=== PATIENT | female | born 1995 | race Two or more races ===

== ENCOUNTER 2018-09-23 15:44 | Emergency (ER) | payer MEDICAID, OTHER ==
[~2018-09-23] VITALS: Ht 149.9 cm; Wt 81.6 kg
[2018-09-23 16:28] VITALS: BP 105/68
[2018-09-23] MEDS ORDERED: IPRATROPIUM BROM 0.5 MG/2.5ML INH SOL ONE (16:58)
[2018-09-23] MEDS ORDERED: ALBUTEROL SULF 2.5 MG/0.5ML(0.5%) NEB SOLN ONE (16:58)
[2018-09-23] MEDS ORDERED: ALBUTEROL SULF 2.5 MG/0.5ML(0.5%) NEB SOLN NEB ONE (17:00)
[2018-09-23] MEDS ORDERED: IPRATROPIUM BROM 0.5 MG/2.5ML INH SOL NEB ONE (17:00)
== END 2018-09-23 17:29 | disposition home or self-care (01) ==
LOC: ER 15:50
DX: J45.909 Unspecified asthma, uncomplicated (principal); J02.9 Acute pharyngitis, unspecified
CPT/HCPCS: 71046; 94640; 99283; J7611; J7644